=== PATIENT | female | born 1990 | race African-American/Black ===

== ENCOUNTER 2016-12-02 08:40 | Day surgery (SDC) | payer BC ==
[~2016-12-02] VITALS: Ht 170.2 cm; Wt 54.5 kg
[2016-12-02 09:03] VITALS: BP 103/73; PULSE 70; TEMP 97.8
[2016-12-02] MEDS ORDERED: PRILOSEC 20MG20 MG PO (09:13)
[2016-12-02] MEDS ORDERED: MIRALAX PA17 GM/Dose PO (09:14)
[2016-12-02 10:35] VITALS: BP 109/70; PULSE 64; TEMP 97.5
[2016-12-02 10:45] VITALS: BP 111/76; PULSE 60
[2016-12-02 11:00] VITALS: BP 102/69; PULSE 59
[2016-12-02 11:15] VITALS: BP 109/83; PULSE 60
== END 2016-12-02 11:30 | disposition home or self-care (01) ==
LOC: SDCO 08:40
DX: K21.0 Gastro-esophageal reflux disease with esophagitis (principal); K59.00 Constipation, unspecified; K58.9 Irritable bowel syndrome, unspecified; F17.210 Nicotine dependence, cigarettes, uncomplicated
CPT/HCPCS: J2250; J2405; J3010; J7030

== ENCOUNTER 2017-07-06 14:40 | Outpatient (RCR) | payer OTHER ==
[~2017-07-06 14:40] MED LIST: MIRALAX PA17 GM/Dose PO; PRILOSEC 20MG20 MG PO
== END 2017-09-22 09:54 | disposition home or self-care (01) ==
LOC: WSOH 14:40
DX: S61.412A Laceration without foreign body of left hand, initial encounter (principal); F17.210 Nicotine dependence, cigarettes, uncomplicated; W26.0XXA Contact with knife, initial encounter; Y99.0 Civilian activity done for income or pay; Z23 Encounter for immunization

== ENCOUNTER 2017-07-24 10:55 | Emergency (ER) | payer OTHER ==
[~2017-07-24] VITALS: Ht 170.2 cm; Wt 54.5 kg
[2017-07-24 10:57] VITALS: TEMP 97.1
[2017-07-24 11:44] LABS: BASO % 0.5 % (0.0-2.0); EOS % 0.8 % (0-4.0); GRAN # 2.4 (1.4-6.5); GRAN % 62.8 % (42.2-75.2); HEMATOCRIT 40.9 % (37.0-47.0); HEMOGLOBIN 13.8 g/dl (12.5-16.0); LYMPH # 0.8 (1.2-3.4); LYMPH % 20.7 % (20.0-51.0); MEAN CELL VOLUME 88 fl (80.0-100.0); MEAN CORPUSCULAR HEMOGLOBIN 30 pg (27.0-31.0); MEAN CORPUSCULAR HGB CONC 34 g/dl (33.0-37.0); MEAN PLATELET VOLUME 8.9 fl (7.4-10.4); MONO # 0.6 (0.1-0.6); MONO % 14.9 % (1.7-9.3); PLATELET COUNT 233 K/mm3 (130-400); RED BLOOD COUNT 4.65 M/mm3 (4.10-5.30)
[2017-07-24 11:52] LABS: ALBUMIN 4.2 gm/dL (3.5-5.0); BILIRUBIN,TOTAL 0.4 mg/dL (0.0-1.0); CALCIUM 9.6 mg/dL (8.4-10.2); CREATININE, serum 0.83 mg/dL (0.52-1.25); POTASSIUM 4.3 mmol/L (3.4-5.0); TOTAL PROTEIN 7.4 gm/dL (6.4-8.2)
[2017-07-24 12:11] LABS: COLLECTION METHOD CLEAN CATCH
[2017-07-24 12:27] LABS: MUCOUS Present /lpf; PH 7 (5-8); SQUAMOUS EPITHELIAL 0-2 /hpf; URINE APPEARANCE Clear; URINE BACTERIA Rare /hpf; URINE BILIRUBIN Negative (NEGATIVE); URINE BLOOD Negative (NEGATIVE); URINE COLOR Yellow; URINE GLUCOSE 1+ (NEGATIVE); URINE KETONE Trace (NEGATIVE); URINE LEUKOCYTE ESTERASE Negative (NEGATIVE); URINE NITRATE Negative (NEGATIVE); URINE PROTEIN(semi-quant) Negative (NEGATIVE); URINE RBC 0-2 /hpf; URINE UROBILINOGEN Negative (NEGATIVE)
[2017-07-24 13:15] VITALS: BP 117/82; PULSE 85
== END 2017-07-24 13:22 | disposition home or self-care (01) ==
LOC: COL.ER 10:55
PROVIDERS: Nurse Practitioner
DX: E16.2 Hypoglycemia, unspecified (principal); F17.210 Nicotine dependence, cigarettes, uncomplicated; Z87.19 Personal history of other diseases of the digestive system; Z98.890 Other specified postprocedural states

== ENCOUNTER → 2017-08-02 | Outpatient (CLI) | payer BC ==
[2017-08-02 17:06] LABS: CHOLESTEROL RISK RATIO 2.5
[2017-08-02 17:37] LABS: TSH w REFLEX 1.68 uIU/mL (0.465-4.680)
== END ==
LOC: COL.LAB 14:50
PROVIDERS: Family Medicine
DX: Z13.1 Encounter for screening for diabetes mellitus (principal); Z13.220 Encounter for screening for lipoid disorders

== ENCOUNTER → 2018-04-10 | Outpatient (CLI) | payer BC ==
[2018-04-10 10:20] LABS: BASO % 0.5 % (0.0-2.0); EOS # 0.1 (0.0-0.7); EOS % 1.6 % (0-4.0); GRAN # 3.6 (1.4-6.5); GRAN % 56.1 % (42.2-75.2); HEMATOCRIT 41.3 % (37.0-47.0); HEMOGLOBIN 13.9 g/dl (12.5-16.0); LYMPH # 2.3 (1.2-3.4); LYMPH % 35.7 % (20.0-51.0); MEAN CELL VOLUME 90 fl (80.0-100.0); MEAN CORPUSCULAR HEMOGLOBIN 30 pg (27.0-31.0); MEAN CORPUSCULAR HGB CONC 34 g/dl (33.0-37.0); MEAN PLATELET VOLUME 9.7 fl (7.4-10.4); MONO # 0.4 (0.1-0.6); MONO % 5.9 % (1.7-9.3); PLATELET COUNT 234 K/mm3 (130-400); RED BLOOD COUNT 4.58 M/mm3 (4.10-5.30); REDCELL DISTRIBUTION WIDTH-CV 12.1 % (11.5-14.5)
== END ==
LOC: COL.LAB 09:41
PROVIDERS: Family Medicine
DX: R55 Syncope and collapse (principal)

== ENCOUNTER → 2018-05-14 | Outpatient (CLI) | payer BC | LOC: COL.CARD 08:30 | DX: R55 Syncope and collapse (principal) ==

== ENCOUNTER → 2018-05-24 | Outpatient (CLI) | payer BC | LOC: COL.VAS 09:46 | DX: I07.1 Rheumatic tricuspid insufficiency (principal); R55 Syncope and collapse ==

== ENCOUNTER → 2018-06-15 | Outpatient (CLI) | payer BC ==
[2018-06-16 01:25] LABS: C-PEPTIDE,SERUM 1.35 ng/mL (0.80-3.90)
== END ==
LOC: COL.LAB 08:34
PROVIDERS: Family Medicine
DX: E16.2 Hypoglycemia, unspecified (principal)

== ENCOUNTER 2020-01-20 10:52 | Outpatient (RCR) | payer OTHER | END 2020-01-22 14:42 | disposition home or self-care (01) | LOC: WSOH 10:52 | DX: S96.812D Strain of other specified muscles and tendons at ankle and foot level, left foot, subsequent encounter (principal); Z87.891 Personal history of nicotine dependence; Z98.51 Tubal ligation status; K22.70 Barrett's esophagus without dysplasia; K58.9 Irritable bowel syndrome, unspecified; Y99.0 Civilian activity done for income or pay | CPT/HCPCS: 24774; L1810 ==

== ENCOUNTER 2020-07-31 12:39 | Emergency (ER) | payer SELFPAY ==
[~2020-07-31] VITALS: Ht 170.2 cm; Wt 56.8 kg
[2020-07-31 12:41] VITALS: BP 136/87; TEMP 98.2
[2020-07-31 13:01] LABS: COLLECTION METHOD CLEAN CATCH
[2020-07-31 13:14] LABS: PH 7 (5-8); SQUAMOUS EPITHELIAL 0-2 /hpf; URINE APPEARANCE Clear; URINE BACTERIA Rare /hpf; URINE BILIRUBIN Negative (NEGATIVE); URINE BLOOD Negative (NEGATIVE); URINE COLOR Straw; URINE GLUCOSE Negative (NEGATIVE); URINE KETONE Negative (NEGATIVE); URINE LEUKOCYTE ESTERASE Negative (NEGATIVE); URINE NITRATE Negative (NEGATIVE); URINE PROTEIN(semi-quant) Negative (NEGATIVE); URINE RBC 0-2 /hpf; URINE UROBILINOGEN Negative (NEGATIVE)
[2020-07-31 13:43] LABS: BASO % 0.5 % (0.0-2.0); EOS # 0.1 (0.0-0.7); EOS % 2.2 % (0-4.0); GRAN # 2.5 (1.4-6.5); GRAN % 43.5 % (42.2-75.2); HEMATOCRIT 41.7 % (37.0-47.0); LYMPH # 2.7 (1.2-3.4); LYMPH % 46.4 % (20.0-51.0); MEAN CELL VOLUME 92 fl (80.0-100.0); MEAN CORPUSCULAR HEMOGLOBIN 31 pg (27.0-31.0); MEAN CORPUSCULAR HGB CONC 34 g/dl (33.0-37.0); MEAN PLATELET VOLUME 9.3 fl (7.4-10.4); MONO # 0.4 (0.1-0.6); MONO % 7.2 % (1.7-9.3); PLATELET COUNT 262 K/mm3 (130-400); RED BLOOD COUNT 4.53 M/mm3 (4.10-5.30); REDCELL DISTRIBUTION WIDTH-CV 12.6 % (11.5-14.5)
[2020-07-31 13:51] LABS: ALBUMIN 4.8 gm/dL (3.5-5.0); BILIRUBIN,TOTAL 0.5 mg/dL (0.0-1.0); CALCIUM 9.5 mg/dL (8.4-10.2); CREATININE, serum 0.71 (0.52-1.25); POTASSIUM 3.2 mmol/L (3.4-5.0); TOTAL PROTEIN 8.1 gm/dL (6.4-8.2)
[2020-07-31] MEDS ORDERED: FLEXERIL5 MG PO (14:56)
[2020-07-31 14:59] VITALS: PULSE 94
== END 2020-07-31 15:03 | disposition home or self-care (01) ==
LOC: COL.ER 12:39
PROVIDERS: Nurse Practitioner
DX: S00.83XA Contusion of other part of head, initial encounter (principal); S00.511A Abrasion of lip, initial encounter; S60.512A Abrasion of left hand, initial encounter; S09.90XA Unspecified injury of head, initial encounter; M54.2 Cervicalgia; F17.200 Nicotine dependence, unspecified, uncomplicated; V43.52XA Car driver injured in collision with other type car in traffic accident, initial encounter

== ENCOUNTER → 2021-12-27 | Outpatient (CLI) | payer BC ==
[~2021-12-27] MED LIST changes: +FLEXERIL5 MG PO
[2021-12-27 10:38] LABS: BASO % 0.9 % (0.0-2.0); EOS % 1.1 % (0.0-4.0); GRAN % 27.8 % (42.2-75.2); HEMATOCRIT 47.5 % (37.0-47.0); HEMOGLOBIN 16.2 g/dl (12.5-16.0); LYMPH # 2.1 K/mm3 (1.2-3.4); LYMPH % 59.7 % (20.0-51.0); MEAN CELL VOLUME 88 fl (80.0-100.0); MEAN CORPUSCULAR HEMOGLOBIN 30 pg (27-31); MEAN CORPUSCULAR HGB CONC 34 g/dl (33.0-37.0); MEAN PLATELET VOLUME 9.3 fl (7.4-10.4); MONO # 0.4 K/mm3 (0.1-0.6); MONO % 10.5 % (1.7-9.3); PLATELET COUNT 248 K/mm3 (130-400); RED BLOOD COUNT 5.42 M/mm3 (4.10-5.30); REDCELL DISTRIBUTION WIDTH-CV 12.3 % (11.5-14.5)
[2021-12-27 10:58] LABS: ALBUMIN 4.3 gm/dL (3.5-5.0); BILIRUBIN,TOTAL 0.2 mg/dL (0.2-1.2); CALCIUM 9.7 mg/dL (8.4-10.2); CREATININE, serum 0.8 mg/dL (0.57-1.11); POTASSIUM 3.7 mmol/L (3.5-4.5); TOTAL PROTEIN 8.1 gm/dL (6.2-8.1)
== END ==
LOC: COL.LAB 10:17
PROVIDERS: Physician Assistant
DX: R56.9 Unspecified convulsions (principal)